=== PATIENT | female | born 1965 | race Caucasian/White ===

== ENCOUNTER → 2017-02-14 | Outpatient (CLI) | payer BC | LOC: WC.BC 08:16 | DX: Z12.31 Encounter for screening mammogram for malignant neoplasm of breast (principal) | CPT/HCPCS: 77063; G0202 ==

== ENCOUNTER 2017-03-14 06:28 | Day surgery (SDC) | payer BC ==
[~2017-03-14] VITALS: Ht 165.1 cm; Wt 59.4 kg
[~2017-03-14 06:28] MED LIST: MULT-933 PO
--- OUTSIDE RECORDS SUMMARY | 2017-03-14 06:33 | XMS REPORT | Referral Summary ---
Author Organization Unknown Address Unknown Phone Unavailable Care Team Providers Care Pharmaceutical Sales Specialist Name Role Phone Alcira Avlarez Primary Care Physician [phone] Encounter VC Date(s): 12/17/14 - 12/17/14 Via LIZZIE Esparza, [place], Family [address] [place] [id number]- Discharge Diagnosis: Screening cholesterol level Discharge Diagnosis: Skin lesion Discharge Diagnosis: Encounter for screening mammogram for malignant neoplasm of breast Discharge Diagnosis: Menopausal symptoms Discharge Diagnosis: PCOS (polycystic ovarian syndrome) Discharge Diagnosis: Well woman exam Discharge Diagnosis: Hyperreflexia Discharge Diagnosis: Well female exam with routine gynecological exam Discharge Disposition: Home or Self Care Attending Physician: Hailey Alvarez MD Admitting Physician: Hailey Alvarez MD Vital Signs Most recent to 1 oldest [Reference Range]: Temperature Tympanic 36.5 degC [36.6-38.1 degC] *LOW* (12/17/14 10:38 AM) Peripheral Pulse 80 bpm Rate [60-100 bpm] (12/17/14 10:38 AM) Blood Pressure 106/74 mmHg [90-140/60-90 mmHg] (12/17/14 10:38 AM) Problem List Condition Effective Dates Status Health Status Informant Allergies(Confirmed) Active pcos(Confirmed) Active Allergies, Adverse Reactions, Alerts Substance Reaction Severity Status amoxicillin Active Medications metFORMIN 500 mg oral tablet 2 tabs, Oral, Daily, # 360 tabs, 3 Refill(s), [facility]: [id number], TAKE TWO TABLETS BY MOUTH TWICE DAILY Start Date: 04/14/14 Status: Ordered Mucinex 600 mg oral tablet, extended release 2 tabs, Oral, q12hr, by oral route every 12 hours. Special Instructions: by oral route every 12 hours. Start Date: 12/14/14 Status: Ordered Results Hematology Most recent to 1 oldest [Reference Range]: WBC [4.8-10.8 K/uL] 6.3 K/uL (12/17/14:37 AM) RBC [4.00-5.20 M/uL] 4.14 M/uL (12/17/14:37 AM) Hgb [12.0-16.0 10.9 gm/dL gm/dL] *LOW* (12/17/1437 AM) Hct [37.0-47.0 %] 35.0 % *LOW* (12/17/1437 AM) MCV [82.0-99.0 fL] 84.5 fL (12/17/1437 AM) MCH [27.0-32.0 pg] 26.3 pg *LOW* (12/17/14 AM) MCHC [32.0-36.0 31.1 gm/dL gm/dL] *LOW* (12/17/14:37 AM) RDW [11.5-14.5 %] 15.3 % *HI* (12/17/1437 AM) Platelet [150-400 341 K/uL K/uL] (12/17/1437 AM) MPV [8.8-14.8 fL] 11.5 fL (12/17/14:37 AM) Immature 0.2 % Granulocytes (12/17/1437 ) [0.0-1.0 %] Neutrophils [51-75 64 % %] (12/17/1437 AM) Lymphocytes [20-46 22 % %] (12/17/1437 AM) Monocytes [4-11 %] 9 % (12/17/14:37 AM) Eosinophils [0-4 %] 4 % (12/17/14:37 AM) Basophils [0-2 %] 1 % (12/17/14:37 AM) Neutro Absolute 4.04 THOUS [1.90-7.00 THOUS] (12/17/14:37 AM) Lymph Absolute 1.35 THOUS [0.80-3.30 THOUS] (12/17/14:37 AM) Woods Absolute 0.55 THOUS [0.30-1.00 THOUS] (12/17/14:37 AM) Eos Absolute 0.27 THOUS [0.00-0.50 THOUS] (12/17/14:37 AM) Baso Absolute 0.06 THOUS [0.00-0.20 THOUS] (12/17/14 AM) Chemistry Most recent to 1 oldest [Reference Range]: Sodium Lvl [135-144 140 mEq/L mEq/L] (12/17/14 AM) Potassium Lvl 4.3 mEq/L [3.5-5.2 mEq/L] (12/17/14 AM) Chloride [99-111 106 mEq/L mEq/L] (12/17/14 AM) CO2 [22-31 mEq/L] 24 mEq/L (12/17/14 AM) AGAP [3-20] 10 (12/17/14 AM) BUN [10-20 mg/dL] 7 mg/dL *LOW* (12/17/14) Glucose Lvl [70-99 90 mg/dL mg/dL] (12/17/14 AM) Creatinine Lvl 0.70 mg/dL [0.57-1.11 mg/dL] (12/17/14 AM) eGFR [>60 mL/min] >60 mL/min 1 (12/17/14 AM) Calcium Lvl 9.3 mg/dL [8.9-10.5 mg/dL] (12/17/14 AM) Albumin Lvl [3.5-5.0 4.4 gm/dL gm/dL] (12/17/14 AM) Total Protein 6.9 gm/dL [6.4-8.3 gm/dL] (12/17/14 AM) Globulin [1.8-4.0 2.5 gm/dL gm/dL] (12/17/14 AM) ALT [0-55 unit/L] 11 unit/L (12/17/14 AM) AST [5-34 unit/L] 16 unit/L (12/17/1437 AM) Alk Phos [40-150 75 unit/L unit/L] (12/17/14 AM) Bili Total [0.2-1.2 0.5 mg/dL mg/dL] (12/17/14 11:37 AM) Chol [0-199 mg/dL] 227 mg/dL *HI* (12/17/14 11:37 AM) Trig [0-149 mg/dL] 72 mg/dL (12/17/14 11:37 AM) HDL [40-84 mg/dL] 50 mg/dL (12/17/14 11:37 AM) LDL [0-130 mg/dL] 163 mg/dL *HI* (12/17/14 11:37 AM) VLDL Cholesterol 14 mg/dL [0-28 mg/dL] (12/17/14 11:37 AM) Cardiac Risk 4.5 [0.0-5.0] (12/17/14 11:37 AM) TSH [0.35-4.94] 1.09 (12/17/14 11:37 AM) 1Result Comment: Multiply eGFR results by 1.21 for race. Immunizations Vaccine Date Refusal Reason tetanus/diphth/pertuss (Tdap) adult/adol 11/21/05 Procedures Procedure Date Related Diagnosis Body Site Collection of venous blood by venipuncture 12/17/14 Social History Social History Type Response Smoking Status Never smoker Assessment and Plan Extracted from: Title: Ambulatory Patient Education Author: Hailey Alvarez MD Date: 12/17/14 Family Medicine Health Maintenance, Female A healthy lifestyle and preventative care can promote health and wellness. Maintain regular health, dental, and eye exams. Eat a healthy diet. Foods like vegetables, fruits, whole grains, low-fat dairy products, and lean protein foods contain the nutrients you need without too many calories. Decrease your intake of foods high in solid fats, added sugars, and salt. Get information about a proper diet from your caregiver, if necessary. Regular physical exercise is one of the most important things you can do for your health. Most adults should get at least 150 minutes of moderate- intensity exercise (any activity that increases your heart rate and causes you to sweat) each week. In addition, most adults need muscle-strengthening exercises on 2 or more days a week. Maintain a healthy weight. The body mass index (BMI) is a screening tool to identify possible weight problems. It provides an estimate of body fat based on height and weight. Your caregiver can help determine your BMI, and can help you achieve or maintain a healthy weight. For adults 20 years and older: A BMI below 18.5 is considered underweight. A BMI of 18.5 to 24.9 is normal. A BMI of 25 to 29.9 is considered overweight. A BMI of 30 and above is considered obese. Maintain normal blood lipids and cholesterol by exercising and minimizing your intake of saturated fat. Eat a balanced diet with plenty of fruits and vegetables. Blood tests for lipids and cholesterol should begin at age 20 and be repeated every 5 years. If your lipid or cholesterol levels are high, you are over 50, or you are a high risk for heart disease, you may need your cholesterol levels checked more frequently.Ongoing high lipid and cholesterol levels should be treated with medicines if diet and exercise are not effective. If you smoke, find out from your caregiver how to quit. If you do not use tobacco, do not start. Lung cancer screening is recommended for adults aged 5580 years who are at high risk for developing lung cancer because of a history of smoking. Yearly low-dose computed tomography (CT) is recommended for people who have at least a [id number]-[id number] history of smoking and are a current smoker or have quit within the past 15 years. A pack year of smoking is smoking an average of 1 pack of cigarettes a day for 1 year (for example: 1 pack a day for 30 years or 2 packs a day for 15 years). Yearly screening should continue until the smoker has stopped smoking for at least 15 years. Yearly screening should also be stopped for people who develop a health problem that would prevent them from having lung cancer treatment. If you are , do not drink alcohol. If you are , be very cautious about drinking alcohol. If you are not and choose to drink alcohol, do not exceed 1 drink per day. One drink is considered to be 12 ounces (355 mL) of beer, 5 ounces (148 mL) of wine, or 1.5 ounces (44 mL) of liquor. Avoid use of street drugs. Do not share needles with anyone. Ask for help if you need support or instructions about stopping the use of drugs. High blood pressure causes heart disease and increases the risk of stroke. Blood pressure should be checked at least every 1 to 2 years. Ongoing high blood pressure should be treated with medicines, if weight loss and exercise are not effective. If you are 55 to 79 years old, ask your caregiver if you should take aspirin to prevent strokes. Diabetes screening involves taking a blood sample to check your fasting blood sugar level. This should be done once every 3 years, after age 45, if you are within normal weight and without risk factors for diabetes. Testing should be considered at a younger age or be carried out more frequently if you are overweight and have at least 1 risk factor for diabetes. Breast cancer screening is essential preventative care for women. You should practice "breast self-awareness." This means understanding the normal appearance and feel of your breasts and may include breast self-examination. Any changes detected, no matter how small, should be reported to a caregiver. Women in their 20s and 30s should have a clinical breast exam (CBE) by a caregiver as part of a regular health exam every 1 to 3 years. After age 40, women should have a CBE every year. Starting at age 40, women should consider having a mammogram (breast X-ray ) every year. Women who have a family history of breast cancer should talk to their caregiver about genetic screening. Women at a high risk of breast cancer should talk to their caregiver about having an MRI and a mammogram every year. Breast cancer gene (BRCA )-related cancer risk assessment is recommended for women who have family members with BRCA -related cancers. BRCA -related cancers include breast, ovarian, tubal, and peritoneal cancers. Having family members with these cancers may be associated with an increased risk for harmful changes (mutations ) in the breast cancer genes BRCA1 and BRCA2 . Results of the assessment will determine the need for genetic counseling and BRCA1 and BRCA2 testing. The Pap test is a screening test for cervical cancer. Women should have a Pap test starting at age 21. Between ages 21 and 29, Pap tests should be repeated every 2 years. Beginning at age 30, you should have a Pap test every 3 years as long as the past 3 Pap tests have been normal. If you had a hysterectomy for a problem that was not cancer or a condition that could lead to cancer, then you no longer need Pap tests. If you are between ages 65 and 70 , and you have had normal Pap tests going back 10 years, you no longer need Pap tests. If you have had past treatment for cervical cancer or a condition that could lead to cancer, you need Pap tests and screening for cancer for at least 20 years after your treatment. If Pap tests have been discontinued, risk factors (such as a new sexual partner) need to be reassessed to determine if screening should be resumed. Some women have medical problems that increase the chance of getting cervical cancer. In these cases, your caregiver may recommend more frequent screening and Pap tests. The human papillomavirus (HPV) test is an additional test that may be used for cervical cancer screening. The HPV test looks for the virus that can cause the cell changes on the cervix. The cells collected during the Pap test can be tested for HPV. The HPV test could be used to screen women aged 30 years and older, and should be used in women of any age who have unclear Pap test results. After the age of 30, women should have HPV testing at the same frequency as a Pap test. Colorectal cancer can be detected and often prevented. Most routine colorectal cancer screening begins at the age of 50 and continues through age 75. However, your caregiver may recommend screening at an earlier age if you have risk factors for colon cancer. On a yearly basis, your caregiver may provide home test kits to check for hidden blood in the stool. Use of a small camera at the end of a tube, to directly examine the colon (sigmoidoscopy or colonoscopy ), can detect the earliest forms of colorectal cancer. Talk to your caregiver about this at age 50, when routine screening begins. Direct examination of the colon should be repeated every 5 to 10 years through age 75, unless early forms of pre-cancerous polyps or small growths are found. Hepatitis C blood testing is recommended for all people born from 1945 through 1965 and any individual with known risks for hepatitis C. Practice safe sex. Use condoms and avoid high-risk sexual practices to reduce the spread of sexually transmitted infections (STIs). Sexually active women aged 25 and younger should be checked for Chlamydia, which is a common sexually transmitted infection. Older women with new or multiple partners should also be tested for Chlamydia. Testing for other STIs is recommended if you are sexually active and at increased risk. Osteoporosis is a disease in which the bones lose minerals and strength with aging. This can result in serious bone fractures. The risk of osteoporosis can be identified using a bone density scan. Women ages 65 and over and women at risk for fractures or osteoporosis should discuss screening with their caregivers. Ask your caregiver whether you should be taking a calcium supplement or vitamin D to reduce the rate of osteoporosis. Menopause can be associated with physical symptoms and risks. Hormone replacement therapy is available to decrease symptoms and risks. You should talk to your caregiver about whether hormone replacement therapy is right for you. Use sunscreen. Apply sunscreen liberally and repeatedly throughout the day. You should seek shade when your shadow is shorter than you. Protect yourself by wearing long sleeves, pants, a wide-brimmed hat, and sunglasses year round, whenever you are outdoors. Notify your caregiver of new moles or changes in moles, especially if there is a change in shape or color. Also notify your caregiver if a mole is larger than the size of a pencil eraser. Stay current with your immunizations. Document Released: 05/05/2012 Document Revised: 02/15/2014 Document Reviewed: [employer] Patient Information 2014 [employer]. No follow up information was provided. Extracted from: Title: Office Visit Note Author: Hailey Alvarez MD Date: 12/17/14 Assessment/Plan Encounter for screening mammogram for malignant neoplasm of breast Ordered: MG Mammogram Routine Screening Bilat Hyperreflexia Discussed doing MRI r.e. consideration of MS. Agree to delay that now. Menopausal symptoms PCOS (polycystic ovarian syndrome) Screening cholesterol level Skin lesion appt with Dr. Sandra Cai female exam with routine gynecological exam Fast track colonoscopy Ordered: HPV High Risk, Thin Prep Orders: MG Mammogram Routine Screening Bilat
--- OUTSIDE RECORDS SUMMARY | 2017-03-14 06:33 | XMS REPORT | Referral Summary ---
Author Organization Unknown Address Unknown Phone Unavailable Care Team Providers Care Business Editor Name Role Phone Alcira Alvarez Primary Care Physician [phone] Encounter VC Date(s): 12/31/14 - 12/31/14 [address] LIZZIE Esparza, [address] [place] [address] Discharge Diagnosis: PCOS (polycystic ovarian syndrome) Discharge Diagnosis: Hyperlipidemia Discharge Diagnosis: Hyperlipidemia Discharge Diagnosis: Family history of early CAD Discharge Disposition: Home or Self Care Attending Physician: Hailey Alvarez MD Admitting Physician: Hailey Alvarez MD Vital Signs Most recent to 1 oldest [Reference Range]: Temperature Tympanic 35.9 degC [36.6-38.1 degC] *LOW* (12/31/14 9:19 AM) Peripheral Pulse 80 bpm Rate [60-100 bpm] (12/31/14 9:19 AM) Blood Pressure 116/68 mmHg [90-140/60-90 mmHg] (12/31/14 9:19 AM) Problem List Condition Effective Dates Status Health Status Informant Allergies(Confirmed) Active pcos(Confirmed) Active Allergies, Adverse Reactions, Alerts Substance Reaction Severity Status amoxicillin Active Medications atorvastatin 10 mg oral tablet 1 tabs, Oral, Daily, # 90 tabs, 3 Refill(s), Pharmacy: [id number], 1 tabs Oral Daily Start Date: 12/31/14 Status: Ordered Mucinex 600 mg oral tablet, extended release 2 tabs, Oral, q12hr, by oral route every 12 hours. Special Instructions: by oral route every 12 hours. Start Date: 12/14/14 Status: Ordered multivitamin Daily, 0 Refill(s) Start Date: 12/31/14 Status: Ordered Results No data available for this section Immunizations Vaccine Date Refusal Reason tetanus/diphth/pertuss (Tdap) adult/adol 11/21/05 Procedures No data available for this section Social History Social History Type Response Smoking Status Never smoker Assessment and Plan Extracted from: Title: Ambulatory Patient Education Author: Hailey Alvarez MD Date: 12/31/14 Family Medicine Coronary Artery Disease, Risk Factors Research has shown that the risk of developing coronary artery disease (CAD) and having a heart attack increases with each factor you have. RISK FACTORS YOU CANNOT CHANGE Your age. Your risk goes up as you get older. Most heart attacks happen to people over the age of 65. Gender. Men have a greater risk of heart attack than women, and they have attacks earlier in life. However, women are more likely to from a heart attack. Heredity. Children of parents with heart disease are more likely to develop it themselves. Race. Americans and other ethnic groups have a higher risk, possibly because of high blood pressure, a tendency toward obesity, and diabetes. Your family. Most people with a strong family history of heart disease have one or more other risk factors. RISK FACTORS YOU CAN CHANGE Exposure to tobacco smoke. Even secondhand smoke greatly increases the risk for heart disease. High blood cholesterol may be lowered with changes in diet, activity, and medicines. High blood pressure makes the heart work harder. This causes the heart muscles to become thick and, eventually, weaker. It also increases your risk of stroke, heart attack, and kidney or heart failure. Physical inactivity is a risk factor for CAD. Regular physical activity helps prevent heart and blood vessel disease. Exercise helps control blood cholesterol, diabetes, obesity, and it may help lower blood pressure in some people. Excess body fat, especially belly fat, increases the risk of heart disease and stroke even if there are no other risk factors. Excess weight increases the heart's workload and raises blood pressure and blood cholesterol. Diabetes seriously increases your risk of developing CAD. If you have diabetes, you should work with your caregiver to manage it and control other risk factors. OTHER RISK FACTORS FOR CAD How you respond to stress. Drinking too much alcohol may raise blood pressure, cause heart failure, and lead to stroke. Total cholesterol greater than 200 milligrams. HDL (good) cholesterol less than 40 milligrams. HDL helps keep cholesterol from building up in the [place] of the arteries. PREVENTING CAD Maintain a healthy weight. Exercise or do physical activity. Eat a heart-healthy diet low in fat and salt and high in fiber. Control your blood pressure to keep it below 120 over 80. Keep your cholesterol at a level that lowers your risk. Manage diabetes if you have it. Stop smoking. Learn how to manage stress. HEART SMART SUBSTITUTIONS Instead of whole or 2% milk and cream, use skim milk. Instead of fried foods, eat baked, steamed, boiled, broiled, or microwaved foods. Instead of lard, butter, palm and coconut oils, cook with unsaturated vegetable oils, such as corn, olive, canola, safflower, sesame, soybean, sunflower, or peanut. Instead of fatty cuts of meat, eat lean cuts of meat or cut off the fatty parts. Instead of 1 whole egg in recipes, use 2 egg whites. Instead of sauces, butter, and salt, season vegetables with herbs and spices. Instead of regular hard and processed cheeses, eat low-fat, low-sodium cheeses. Instead of salted potato chips, choose low-fat, unsalted tortilla and potato chips and unsalted pretzels and popcorn. Instead of sour cream and mayonnaise, use plain low-fat yogurt, low-fat cottage cheese, or low-fat or "light" sour cream. FOR MORE INFORMATION National Heart Lung and Blood [place]: www.nhlbi.nih.gov/health/hearttruth [employer]: www.heart.org/HEARTORG Document Released: 01/10/2005 Document Revised: 01/12/2013 Document Reviewed: [employer] Patient Information 2014 [employer] [facility]. No follow up information was provided. Extracted from: Title: Office Visit Note Author: Hailey Alvarez MD Date: 12/31/14 Assessment/Plan Family history of early CAD Hyperlipidemia Hyperlipidemia She's not sure if she's going to take the atorvastatin or not Ordered: Lipid Panel PCOS (polycystic ovarian syndrome) Orders: atorvastatin, 1 tabs, Oral, Daily, # 90 tabs, 3 Refill(s), Pharmacy: [id number], 1 tabs Oral Daily
[2017-03-14 06:40] VITALS: BP 150/79; PULSE 64; RESP 16; TEMP 98; O2SAT 100; Ht 165.1 cm; Wt 59.4 kg
[2017-03-14] MEDS ORDERED: LIDOCAINE 1% (10mg/ml) 2ml SDV INJ ONE (07:00)
[2017-03-14] MEDS ORDERED: LR 1,000 ML IV SCH (07:00)
--- NOTE | 2017-03-14 07:35 | ANESPREOP ---
Anesthesia Record Date and Time DATE: 03/14/17 TIME: 07:34 Pre-Op Diagnosis Screening Proposed Surgical Procedure COLONOSCOPY NPO since: Midnight Allergies: Coded Allergies: amoxicillin (Verified Allergy, Unknown, RASH, 03/13/17) Ht/Wt/BMI Height: 5 ' 5.00 " Weight: 59.400 kg BMI: 21.8 kg/m2 Vital Signs Date Time Temp Pulse Resp B/P Pulse Ox O2 Delivery O2 Flow Rate FiO2 03/14/17 06:40 98.0 64 16 150/79 100 Room Air Medications Inpatient Medications Current Medications Medications (Trade) Dose Ordered Sig/Morenita Start Time Stop Time Status Last Admin Dose Admin Lactated Ringer's (Lactated Ringers) 1,000 ml @ 30 mls/hr Q24H 03/14/17 07:00 03/14/17 07:08 30 MLS/HR Multivitamin (Multi-Day Vitamins) 1 Each Tablet, 1 TAB PO DAILY, (Reported) Last Taken: on 02/28/17 0800 Currently on Beta Farhana: No Medical/Surgical History Anesthesia PMH: Reports: Arthritis (MILD), Denies: Anesthesia Reactions (NO AIRWAY ISSUES), Cancer, Clotting Problems, Glaucoma, Malignant Hyperthermia, Renal Disease, Sleep Apnea Smoking Status: Never smoker Has pt. smoked today?: No Use Chewing Tobacco?: No Second Hand Exposure: No Substance Use Type: does not use Alcohol Intake: none HX of Last Menstrual Period: 2015 Past Surgical History Orthopedic Surgeries: Abdominal Surgeries: Genitourinary Surgeries: Cardiac Surgeries: Endocrine Surgeries: Reproductive Surgeries: Yes - D&C Neurological Surgeries: Ear Surgeries: Nose Surgeries: Throat Surgeries: Other Surgeries: Anesthesia Adverse Reactions: FOUND none Family Hx of Anesthesia Advers: none Hx of Motion Sickness: No Pertinent Findings Test 03/14/17 07:05 EKG Rhythm: Sinus Rhythm Physical Exam Respiratory: Lungs clear Cardiovascular: FOUND Regular rate, rhythm Airway Assessment Mallampati Score: II TMD: 3 Fingerbreadths Neck Extension: Good Overall Assessment: No Airway Concerns ASA: 1 Plan Anesthesia Plan: TIVA Discussion Discussed risks/options/alternatives of anesthesia and questions answered. Patient consents. Nursing pain assessment noted. Attestation Statement Prior to the delivery of any anesthetic medication, I examined the patient, developed the plan, obtained the patient's consent and discussed the risk and benefits of the procedure with the patient/guardian. JONATHAN WATSON CRNA March 14, 2017 07:35
[2017-03-14] MEDS ORDERED: PROPOFOL 500mg 50 ML IV ONE (08:24)
[2017-03-14 09:07] VITALS: BP 95/53; PULSE 79; RESP 16; TEMP 96.9; O2SAT 98
[2017-03-14 09:20] VITALS: BP 92/51; PULSE 94; RESP 16; O2SAT 95
[2017-03-14 09:35] VITALS: BP 104/55; PULSE 98; RESP 16; O2SAT 98
[2017-03-14 09:50] VITALS: BP 105/56; PULSE 80; RESP 18; O2SAT 94
--- NOTE | 2017-03-14 10:27 | ANESPO ---
Post-Op Note Date 03/14/17 Time: 10:26 Status Pt Participated in Evaluation: Pt participated in person Vital Signs Date Time Temp Pulse Resp B/P Pulse Ox O2 Delivery O2 Flow Rate FiO2 03/14/17 09:50 80 18 105/56 94 Room Air 03/14/17 09:07 96.9 Respiratory Function: Airway patent Cardiovascular Function: Regular pulse Telemetry Pattern: SR Mental Status: Alert/oriented Pain Level Intensity: 0 Hydration: Taking po fluids Complications during Recovery None apparent Follow-Up Instructions Instructions Per Surgeon JONATHAN WATSON CRNA March 14, 2017 10:26
--- NOTE | 2017-03-14 13:48 | OPNOTEF ---
DATE OF SERVICE March 14, 2017 SURGEON Tin Lopez MD PREOPERATIVE DIAGNOSIS Colorectal cancer screening. POSTOPERATIVE DIAGNOSIS Colorectal cancer screening, normal colonoscopy. PROCEDURE Preventive colonoscopy. ANESTHESIA TIVA BRIEF HISTORY/INDICATIONS Mrs. Preciado is a 51-year-old female who presents today to [facility] to undergo a colonoscopy to serve as a portion of her overall colorectal cancer surveillance. For completeness please refer to notes included in the patient's chart. FINDINGS Upon colonoscopy there was no evidence for angiodysplastic lesions, polyps, diverticula or demetrice malignancies. DESCRIPTION OF PROCEDURE After informed consent was obtained, the patient was brought to the endoscopy suite and placed on the table in left lateral decubitus position. The patient subsequently underwent total intravenous anesthesia by the nurse bath house attendant per my request. A formal timeout was then performed. Next, a digital rectal examination was performed. Normal sphincter tone. No rectal masses were appreciated. An Olympus colonoscope was inserted in the anus and advanced with the lumen of the colon under direct visualization at all times until the cecum was ascertained. Triangulation of the tenia coli, ileocecal valve and appendiceal lumen were all visualized. The scope was then slowly withdrawn, again while maintaining visualization of the lumen at all times. As stated above, the entire colon was without evidence for angiodysplastic lesions, polyps, diverticula or demetrice malignancies. The scope continued to be withdrawn until it was brought forth back into the rectal vault. A J-maneuver was then performed. No worrisome perianal pathology was noted. The scope was allowed to straighten and was withdrawn through the anal verge. The patient tolerated the procedure without difficulty and was sent back to the preop area in stable condition. Secondary to the absence of findings upon this colonoscopy, the patient will not need to undergo a repeat colonoscopy until ten years from now unless new indications should arise. EDIE
== END 2017-03-14 10:00 | disposition home or self-care (01) ==
LOC: SCU 06:28
PROVIDERS: ATTEND Surgery
DX: Z12.11 Encounter for screening for malignant neoplasm of colon (principal); E78.5 Hyperlipidemia, unspecified; E28.2 Polycystic ovarian syndrome; Z88.1 Allergy status to other antibiotic agents
CPT/HCPCS: 36415; 45378; 84703; J2704; J7120